=== PATIENT | female | born 1965 | race Caucasian/White ===

== ENCOUNTER 2022-04-24 00:36 | Emergency (ER) | payer OTHER, BC ==
[~2022-04-24] VITALS: Ht 167.6 cm; Wt 95.2 kg
[~2022-04-24 00:36] MED LIST: CYCL10 PO; Cyclobenzaprine5 MG PO; Elemental Calc600 MG PO; HYDACE5 PO; IBUP800 PO; LISI20; MELO7.5; Mobic15 MG PO; NAPR500 PO; Norco 5-325 Ta1 EACH PO; OXYACE5T PO; POLY17UD PO; Pepcid40 MG PO; RXTRAM50 PO; SUCR1 PO; TRAM50 PO; Vitamin D2000 UNIT PO
== END 2022-04-24 03:53 | disposition home or self-care (01) ==
LOC: ER 00:36
DX: S01.81XA Laceration without foreign body of other part of head, initial encounter (principal); W18.09XA Striking against other object with subsequent fall, initial encounter; Z79.899 Other long term (current) drug therapy
CPT/HCPCS: 12011; 90471; 90714; 99282-25

== ENCOUNTER → 2023-07-26 | Outpatient (CLI) | payer BC ==
[2023-08-08 16:28] LABS: HPV HIGH RISK BY TMA Not Detected; HPV SOURCE Cervical
== END ==
LOC: LAB SHORT 09:45 → LAB 09:45
PROVIDERS: Family Medicine
DX: Z01.419 Encounter for gynecological examination (general) (routine) without abnormal findings (principal)
CPT/HCPCS: 87624; G0123